=== PATIENT | female | born 1945 | race Caucasian/White ===

== ENCOUNTER → 2016-08-10 | Outpatient (CLI) | payer OTHER ==
[~2016-08-10] MED LIST: ASCA500 PO; DPH/ PO; FOLI1TAB7 PO; GABA1CAP PO; IBUP-1050 PO; LORA-741 PO; METO25TA3 PO; SERT25TA PO
--- NOTE | 2016-08-10 17:57 | DIAGNOSTIC IMAGING REPORT ---
LEFT LOWER EXTREMITY VENOUS DOPPLER HISTORY: LEFT LEG PAIN R/O DVT COMPARISON STUDY: None. FINDINGS: There is normal compressibility, flow, and augmentation within the left lower extremity deep venous system. Within the left calf at the patient's area of pain there is a superficial varicosity which appears patent. IMPRESSION: No DVT within the left lower extremity. Electronically signed by: Dewey Lovell M.D. 08/10/2016 5:56 PM Dictated Date/Time: 08/10/2016 5:56 PM
== END | disposition home or self-care (01) ==
LOC: C.ULTR 17:24
PROVIDERS: ATTEND Family Medicine
DX: M79.605 Pain in left leg (principal)

== ENCOUNTER → 2017-02-23 | Outpatient (CLI) | payer OTHER ==
[~2017-02-23] MED LIST changes: -FOLI1TAB7 PO; +FOLI1TAB8 PO
--- NOTE | 2017-02-26 08:00 | MAMMOGRAPHY REPORT ---
BILATERAL DIGITAL DIAGNOSTIC MAMMOGRAM TOMOSYNTHESIS WITH CAD AND TARGETED LEFT ULTRASOUND: 7 CLINICAL HISTORY: The patient reports left breast pain and associated lumpiness in the left upper out er quadrant. TECHNIQUE: Breast tomosynthesis in addition to standard 2D mammography was performed. Current study was also evaluated with a Computer Aided Detection (CAD) system. Bilateral CC and MLO 2-D and tomosy nthesis images were obtained. COMPARISON: Comparison is made to exams dated: 03/09/2014 mammogram, 09/01/2013 ultrasound, 09/01/2013 mammogram, 03/10/2013 ultrasound, 03/10/2013 mammogram - [facility], and 04/03/2002 mammogram. BREAST COMPOSITION: There are scattered areas of fibroglandular density in both breasts. FINDINGS: A triangle marker xiong the site of the palpable lumps and associated pain in the left uppe r outer quadrant. No suspicious masses or other suspicious mammographic abnormalities are noted in t his region. The remainder of both breasts are stable compared to prior exams, without suspicious mas ses, calcifications, or areas of architectural distortion noted. Bilateral asymmetries and scattered bilateral benign-appearing calcifications are stable compared to prior exams. Targeted ultrasound was performed of the area of the palpable lumps and pain pointed out by the patie nt, involving the left 1:00 breast. Sonographically normal tissue is seen throughout the left 1:00 b reast, without evidence of a mass or other suspicious sonographic normality. IMPRESSION: ACR BI-RADS CATEGORY 2: BENIGN, TARGETED ULTRASOUND ACR BI-RADS CATEGORY 2: BENIGN No suspicious mammographic or sonographic abnormality at the site of left breast lumps and pain point ed out by the patient. There is no mammographic or targeted sonographic evidence of malignancy. Rec ommend clinical follow-up; any decision to biopsy should be based on clinical grounds. Also recommen d routine bilateral screening mammograms in one year. The patient has been verbally notified of the results. Approximately 10% of breast cancers are not detected with mammography. A negative mammographic report should not delay biopsy if a clinically suggestive mass is present. Mignon Ramírez M.D. ah/:02/23/2017 14:28:57 Planning Supervisor: Yancy MILLER(R)(M), [facility] letter sent: Normal 1/2 BI-RADS Code: ACR BI-RADS Category 2: Benign Ultrasound BI-RADS: ACR BI-RADS Category 2: Benign
== END | disposition home or self-care (01) ==
LOC: C.MAMM 13:50
PROVIDERS: ATTEND Nurse Practitioner Family
DX: N64.4 Mastodynia (principal); N63.0 Unspecified lump in unspecified breast

== ENCOUNTER 2017-03-08 17:16 | Emergency (ER) | payer OTHER ==
[~2017-03-08] VITALS: Ht 167.6 cm; Wt 70.6 kg
[~2017-03-08 17:16] MED LIST changes: +GABA-1693 PO; -GABA1CAP PO
[2017-03-08 17:19] VITALS: TEMP 36.8; Ht 167.6 cm; Wt 70.6 kg
[2017-03-08 17:35] VITALS: O2SAT 97
--- NOTE | 2017-03-08 17:41 | EMERGENCY ROOM VISIT NOTE ---
History Report prepared by Tayla: Ana Henderson Under the Supervision of: Dr. Celestine Carrillo D.O. First contact with patient: 17:21 Chief Complaint: STROKE SYMPTOMS Stated Complaint: LEFT SIDED NUMBNESS OF FACE History of Present Illness The patient is a 72 year old female who presents to the Emergency Room with complaints of an episode of stroke like symptoms starting an hour ago. The patient states that she started having a headache unlike any she has ever had. She reports that she noticed that the left side of her face started going numb from her nose down through her lips. The patient states that she felt like she was going to pass out. The patient complains of a knot in the side of her neck and dry eyes. She reports that she has been taking Restasis with no relief. The patient notes a history of arthritis, fibromyalgia, anxiety, depression, IBS, and several neck surgeries. She notes that she takes a beta kalee for irregular heartbeats and states that she had a cardiac ablation a few years ago. Source of History: patient Onset: an hour ago Position: other (global) Quality: numbness Timing: other (episode) Associated Symptoms: + headache, + neck pain Note: The patient complains of dry eyes and feeling like she was going to pass out. Review of Systems See HPI for pertinent positives & negatives. A total of 10 systems reviewed and were otherwise negative. Past Medical & Surgical Medical Problems: (1) Anxiety (2) Arthritis (3) Depression (4) Fibromyalgia (5) History of thyroid nodule (6) IBS (irritable bowel syndrome) Surgical Problems: (1) Hx of neck surgery Family History No pertinent family history Social History Smoking Status: Never Smoker Alcohol Use: none Housing Status: lives with family Occupation Status: retired Current/Historical Medications Scheduled Ascorbic Acid (Ascorbic Acid), 500 MG PO DAILY Cyclosporine (Ophth) (Restasis), 1 DROP OPB BID Folic Acid (Folvite), 1 MG PO DAILY Gabapentin (Neurontin), 100 MG PO DAILY Ibuprofen (Advil), 200-600 MG PO Q4HR PRN Lorazepam (Ativan), 0.5 MG PO Q6HR PRN Metoprolol Succ (Toprol Xl) (Toprol-Xl), 12.5 MG PO QPM Pregabalin (Lyrica), 150 MG PO BID Sertraline (Zoloft), 150 MG PO QPM Allergies Coded Allergies: Codeine (Verified Adverse Reaction, Unknown, NAUSEA, 03/08/17) Physical Exam Vital Signs Date Time Temp Pulse Resp B/P (MAP) Pulse Ox O2 Delivery O2 Flow Rate FiO2 03/08/17 18:16 91 16 110/96 95 03/08/17 18:00 60 20 140/60 03/08/17 17:46 63 20 143/74 100 03/08/17 17:35 97 Room Air 03/08/17 17:35 69 03/08/17 17:30 70 20 158/81 03/08/17 17:19 36.8 103 16 165/84 97 Room Air Physical Exam VITAL SIGNS: were reviewed as above. GENERAL:Non-toxic in appearance. SKIN: Warm dry and pink. HEAD: Normocephalic and atraumatic. OROPHARYNX: Is clear and moist NECK: Supple without lymphadenopathy or meningismus. LUNGS: clear. HEART: Regular rate and rhythm. ABDOMEN: Soft and nontender. EXTREMITIES: Warm and well perfused. NEUROLOGICALLY: Awake alert and oriented without focal deficit. Cranial nerves 2 -12 are intact. There is no pronator drift. Cerebellar testing is within normal limits. There is no nystagmus. There is no facial droop. Speech is clear. Vision is grossly normal. MUSCULOSKELETAL: Good muscle tone. No evidence of trauma. Medical Decision & Procedures ER Provider Diagnostic Interpretation: Radiology results as stated below per my review and radiologist interpretation: CHEST ONE VIEW PORTABLE CLINICAL HISTORY: 72 years-old Female presenting with EVALUATE ALTERED MENTAL STATUS/WEAKNESS. TECHNIQUE: Portable upright AP view of the chest was obtained. COMPARISON: 04/03/2014. FINDINGS: Atherosclerosis of aortic arch. Cardiac silhouette top normal in size. Minimal left basilar opacities. No pleural effusion or pneumothorax. Partially visualized anterior cervical fusion hardware. Upper abdomen normal. IMPRESSION: 1. Minimal left basilar atelectasis. No convincing evidence of acute cardiopulmonary disease. Electronically signed by: Fabio Summers M.D. 03/08/2017 5:59 PM Dictated Date/Time: 03/08/2017 5:[address] SCAN OF THE BRAIN WITHOUT IV CONTRAST CLINICAL HISTORY: Change in mental status. Weakness. COMPARISON STUDY: No priors. TECHNIQUE: Unenhanced axial CT scan of the brain is performed from the vertex to the skull base. A dose lowering technique was utilized adhering to the principles of ALARA. CT DOSE: 537.48 mGy.cm FINDINGS: Brain parenchyma: There are age-related involutional changes noting mild subcortical and periventricular microangiopathic change. There is no hemorrhage, mass effect, or evidence of acute territorial ischemia by CT criteria. Durant-white matter is preserved. No extra-axial fluid collection is seen. Ventricles, sulci, cisterns: Prominent secondary to involutional change. Intracranial vasculature: There is mild atherosclerotic calcification of the cavernous carotid intervertebral arteries. Calvarium: Unremarkable. Sinuses and mastoids: The visualized paranasal sinuses are clear. The mastoid air cells are well pneumatized. Orbits: The bony orbits are grossly intact. IMPRESSION: There is no hemorrhage, mass effect, or evidence of acute territorial ischemia by CT criteria. Electronically signed by: Rafiq Sousa M.D. 03/08/2017 5:47 PM Dictated Date/Time: 03/08/2017 5:44 PM BRAIN WITHOUT CONTRAST CLINICAL HISTORY: 72 years-old Female presenting with paresthesia left face numbness started at 3:00 PM today, r/o cva. TECHNIQUE: Multisequence, multiplanar MR imaging of the brain was performed without the use of intravenous contrast. IV contrast: None. COMPARISON: Noncontrast CT head from earlier the same day. FINDINGS: Ventricles and sulci normal in size. Minimal subcortical white matter FLAIR hyperintensity likely age-related change. Brain parenchyma otherwise normal in appearance with preserved durant-white differentiation. No mass effect or midline shift. No restricted diffusion to suggest acute ischemia. No hemorrhage. No extra-axial fluid collection. T2 skull base flow voids preserved. Bone marrow signal intensity within the calvarium within normal limits. IMPRESSION: 1. No acute intracranial abnormality. Electronically signed by: Fabio Summers M.D. 03/08/2017 7:00 PM Dictated Date/Time: 03/08/2017 6:57 PM Laboratory Results 03/08/17 17:30 Red Blood Count 4.47, Mean Corpuscular Volume 94.4, Mean Corpuscular Hemoglobin 30.9, Mean Corpuscular Hemoglobin Concent 32.7, Mean Platelet Volume 10.6, Neutrophils (%) (Auto) 52.6, Lymphocytes (%) (Auto) 38.1, Monocytes (%) (Auto) 7.0, Eosinophils (%) (Auto) 1.9, Basophils (%) (Auto) 0.3, Neutrophils # (Auto) 4.15, Lymphocytes # (Auto) 3.01, Monocytes # (Auto) 0.55, Eosinophils # (Auto) 0.15, Basophils # (Auto) 0.02 03/08/17 17:30 Test 03/08/17 17:30 White Blood Count 7.89 K/uL (4.8-10.8) Red Blood Count 4.47 M/uL (4.2-5.4) Hemoglobin 13.8 g/dL (12.0-16.0) Hematocrit 42.2 % (37-47) Mean Corpuscular Volume 94.4 fL (80-100) Mean Corpuscular Hemoglobin 30.9 pg (25-34) Mean Corpuscular Hemoglobin Concent 32.7 g/dl (32-36) Platelet Count 332 K/uL (130-400) Mean Platelet Volume 10.6 fL (7.4-10.4) Neutrophils (%) (Auto) 52.6 % Lymphocytes (%) (Auto) 38.1 % Monocytes (%) (Auto) 7.0 % Eosinophils (%) (Auto) 1.9 % Basophils (%) (Auto) 0.3 % Neutrophils # (Auto) 4.15 K/uL (1.4-6.5) Lymphocytes # (Auto) 3.01 K/uL (1.2-3.4) Monocytes # (Auto) 0.55 K/uL (0.11-0.59) Eosinophils # (Auto) 0.15 K/uL (0-0.5) Basophils # (Auto) 0.02 K/uL (0-0.2) RDW Standard Deviation 45.7 fL (36.4-46.3) RDW Coefficient of Variation 13.3 % (11.5-14.5) Immature Granulocyte % (Auto) 0.1 % Immature Granulocyte # (Auto) 0.01 K/uL (0.00-0.02) Anion Gap 3.0 mmol/L (3-11) Est Creatinine Clear Calc Drug Dose 53.1 ml/min Estimated GFR () 76.1 Estimated GFR (Non- 65.6 BUN/Creatinine Ratio 23.4 (10-20) Calcium Level 8.9 mg/dl (8.5-10.1) Magnesium Level 2.5 mg/dl (1.8-2.4) Total Bilirubin 0.3 mg/dl (0.2-1) Direct Bilirubin mg/dl (0-0.2) Aspartate Amino Transf (AST/SGOT) 21 U/L (15-37) Alanine Aminotransferase (ALT/SGPT) 24 U/L (12-78) Alkaline Phosphatase 101 U/L (45-117) Total Creatine Kinase 138 U/L (26-192) Creatine Kinase MB 2.5 ng/ml (0.5-3.6) Creatine Kinase MB Ratio 1.8 (0-3.0) Troponin I < 0.015 ng/ml (0-0.045) Total Protein 8.0 gm/dl (6.4-8.2) Albumin 4.4 gm/dl (3.4-5.0) Thyroid Stimulating Hormone (TSH) 2.370 uIu/ml (0.300-4.500) Chemistry Specimen Hemolysis Laboratory results as stated above per my review. ECG Indication: other (numbness) Rate (beats per minute): 71 Rhythm: sinus with SA Findings: no acute ischemic change, no ectopy ED Course 172: Previous medical records were reviewed. The patient was evaluated in room B1. A complete history and physical examination was performed. 1840: I went to reevaluate the patient, but she was at MRI. 1904: On reevaluation, the patient is resting comfortably. She notes that she has a headache. I discussed the results and findings with the patient. She verbalized agreement of the treatment plan. The patient was discharged home. 1907: Ordered Toradol Inj 30 mg IV. Medical Decision Differential includes acute coronary syndrome, myocardial infarction, CVA, TIA, anemia, infection, pneumonia, UTI, pyelonephritis, poor nutrition, dehydration, electrolyte disturbance,hypoglycemia. This is a 72-year-old female who presents to the ED with a chief complaint of a strange headache and left-sided facial numbness. The patient states that numbness is near the upper lip and lateral nasolabial fold. It does not encompass the entire left face. The patient states that it occurred one hour before arrival. She denies any other symptoms. No recent illness, fevers or trauma. Her neurologic and physical exam were normal. She is no focal deficits. CT scan of the brain and MRI of the brain were normal. CBC, complete metabolic panel and troponin as well as TSH were unremarkable. EKG shows a normal sinus rhythm with sinus arrhythmia. The patient was treated with Toradol IV for headache. She was told results the test. She is felt to be stable for discharge and outpatient follow-up. She does report a history of arthritis, fibromyalgia, irritable bowel syndrome, previous neck surgery, anxiety and depression as well as previous cardiac ablation. Medication Reconcilliation Current Medication List: was personally reviewed by me Blood Pressure Screening Patient's blood pressure: Elevated blood pressure Blood pressure disposition: Elevated BP felt to be situational Impression Primary Impression: Headache Additional Impression: Facial paresthesia Scribe Attestation The scribe's documentation has been prepared under my direction and personally reviewed by me in its entirety. I confirm that the note above accurately reflects all work, treatment, procedures, and medical decision making performed by me. Departure Information Dispostion Home / Self-Care Referrals Liza Mcdermott M.D. (PCP) Forms HOME CARE DOCUMENTATION FORM, IMPORTANT VISIT INFORMATION Patient Instructions Headache Pain, My [facility] Additional Instructions Follow-up with your doctor for further care and evaluation in 1-2 days. Return to the emergency department for worsening or new symptoms or any concerns. You have been examined and treated today on an emergency basis only. This is not a substitute for, or an effort to provide, complete comprehensive medical care. It is impossible to recognize and treat all injuries or illnesses in a single emergency department visit. It is therefore important that you follow up closely with your doctor. Call as soon as possible for an appointment. Problem Qualifiers
[2017-03-08 17:43] LABS: BASO % 0.3 %; BASO ABS # 0.02 K/uL (0-0.2); EOS % 1.9 %; EOS ABS # 0.15 K/uL (0-0.5); HEMATOCRIT 42.2 % (37-47); HEMOGLOBIN 13.8 g/dL (12.0-16.0); IG# 0.01 K/uL (0.00-0.02); LYMPH % 38.1 %; LYMPH ABS # 3.01 K/uL (1.2-3.4); MEAN CELL VOLUME 94.4 fL (80-100); MEAN CORPUSCULAR HEMOGLOBIN 30.9 pg (25-34); MEAN CORPUSCULAR HGB CONC 32.7 g/dl (32-36); MEAN PLATELET VOLUME 10.6 fL (7.4-10.4); MONO ABS # 0.55 K/uL (0.11-0.59); NEUT % 52.6 %; NEUT ABS # 4.15 K/uL (1.4-6.5); PLATELET COUNT 332 K/uL (130-400); RED CELL DISTRIBUTION WIDTH CV 13.3 % (11.5-14.5); RED CELL DISTRIBUTION WIDTH SD 45.7 fL (36.4-46.3); WHITE BLOOD COUNT 7.89 K/uL (4.8-10.8)
[2017-03-08] MEDS ORDERED: SERT-234 PO (17:46)
[2017-03-08] MEDS ORDERED: PREG1CAP70 PO (17:46)
[2017-03-08] MEDS ORDERED: CYCL0.052 OPB (17:47)
[2017-03-08] MEDS ORDERED: ASCO500T16 PO (17:47)
--- NOTE | 2017-03-08 17:49 | DIAGNOSTIC IMAGING REPORT ---
CT SCAN OF THE BRAIN WITHOUT IV CONTRAST CLINICAL HISTORY: Change in mental status. Weakness. COMPARISON STUDY: No priors. TECHNIQUE: Unenhanced axial CT scan of the brain is performed from the vertex to the skull base. A dose lowering technique was utilized adhering to the principles of ALARA. CT DOSE: 537.48 mGy.cm FINDINGS: Brain parenchyma: There are age-related involutional changes noting mild subcortical and periventricular microangiopathic change. There is no hemorrhage, mass effect, or evidence of acute territorial ischemia by CT criteria. Durant-white matter is preserved. No extra-axial fluid collection is seen. Ventricles, sulci, cisterns: Prominent secondary to involutional change. Intracranial vasculature: There is mild atherosclerotic calcification of the cavernous carotid intervertebral arteries. Calvarium: Unremarkable. Sinuses and mastoids: The visualized paranasal sinuses are clear. The mastoid air cells are well pneumatized. Orbits: The bony orbits are grossly intact. IMPRESSION: There is no hemorrhage, mass effect, or evidence of acute territorial ischemia by CT criteria. Electronically signed by: Rafiq Sousa M.D. 03/08/2017 5:47 PM Dictated Date/Time: 03/08/2017 5:44 PM
--- NOTE | 2017-03-08 18:01 | DIAGNOSTIC IMAGING REPORT ---
CHEST ONE VIEW PORTABLE CLINICAL HISTORY: 72 years-old Female presenting with EVALUATE ALTERED MENTAL STATUS/WEAKNESS. TECHNIQUE: Portable upright AP view of the chest was obtained. COMPARISON: 04/03/2014. FINDINGS: Atherosclerosis of aortic arch. Cardiac silhouette top normal in size. Minimal left basilar opacities. No pleural effusion or pneumothorax. Partially visualized anterior cervical fusion hardware. Upper abdomen normal. IMPRESSION: 1. Minimal left basilar atelectasis. No convincing evidence of acute cardiopulmonary disease. Electronically signed by: Fabio Summers M.D. 03/08/2017 5:59 PM Dictated Date/Time: 03/08/2017 5:58 PM
[2017-03-08 18:26] LABS: ALBUMIN 4.4 gm/dl (3.4-5.0); ALKALINE PHOSPHATASE 101 U/L (45-117); ALT/SGPT 24 U/L (12-78); AST/SGOT 21 U/L (15-37); BLOOD UREA NITROGEN 20 mg/dl (7-18); CALCIUM 8.9 mg/dl (8.5-10.1); CARBON DIOXIDE 30 mmol/L (21-32); CKMB 2.5 ng/ml (0.5-3.6); CREATININE 0.87 mg/dl (0.60-1.20); GLUCOSE 80 mg/dl (70-99); POTASSIUM 4.3 mmol/L (3.5-5.1); SODIUM 138 mmol/L (136-145)
--- NOTE | 2017-03-08 19:02 | DIAGNOSTIC IMAGING REPORT ---
BRAIN WITHOUT CONTRAST CLINICAL HISTORY: 72 years-old Female presenting with paresthesia left face numbness started at 3:00 PM today, r/o cva. TECHNIQUE: Multisequence, multiplanar MR imaging of the brain was performed without the use of intravenous contrast. IV contrast: None. COMPARISON: Noncontrast CT head from earlier the same day. FINDINGS: Ventricles and sulci normal in size. Minimal subcortical white matter FLAIR hyperintensity likely age-related change. Brain parenchyma otherwise normal in appearance with preserved barnhart-white differentiation. No mass effect or midline shift. No restricted diffusion to suggest acute ischemia. No hemorrhage. No extra-axial fluid collection. T2 skull base flow voids preserved. Bone marrow signal intensity within the calvarium within normal limits. IMPRESSION: 1. No acute intracranial abnormality. Electronically signed by: Fabio Summers M.D. 03/08/2017 7:00 PM Dictated Date/Time: 03/08/2017 6:57 PM
[2017-03-08] MEDS ORDERED: KETOROLAC TROMETHAMINE 30 MG/ML VIAL IV STA (19:08)
[2017-03-08 19:33] VITALS: BP 128/84; PULSE 60; O2SAT 97
[2017-08-23] MEDS ORDERED: METH500T PO (14:02)
== END 2017-03-08 19:33 | disposition home or self-care (01) ==
LOC: C.EDB 17:17
DX: R51 Headache (principal); R20.2 Paresthesia of skin; F41.9 Anxiety disorder, unspecified; F32.9 Major depressive disorder, single episode, unspecified; M19.90 Unspecified osteoarthritis, unspecified site; M79.7 Fibromyalgia; K58.9 Irritable bowel syndrome, unspecified

== ENCOUNTER → 2017-04-30 | Outpatient (CLI) | payer OTHER ==
[~2017-04-30] MED LIST changes: -ASCA500 PO; +ASCO500T16 PO; +CYCL0.052 OPB; -DPH/ PO; -GABA-1693 PO; +GABA100C13 PO; +PREG1CAP70 PO; +SERT-234 PO; -SERT25TA PO
--- NOTE | 2017-04-30 15:35 | DIAGNOSTIC IMAGING REPORT ---
MRI OF THE CERVICAL SPINE WITHOUT IV CONTRAST CLINICAL HISTORY: Neck pain. COMPARISON STUDY: Radiographs of the cervical spine dated 12/05/2011. MRI of the cervical spine dated 03/18/2012. TECHNIQUE: MRI of the cervical spine is performed utilizing various T1 and T2-weighted sequences in the axial and sagittal planes. IV contrast was not administered for this examination. The examination is degraded by susceptibility artifact from extensive spinal orthopedic hardware. FINDINGS: Cervical spine: Vertebral body height is maintained throughout the cervical spine. There is straightening of the cervical lordosis. Minimal retrolisthesis is seen at C3-C4. Alignment is otherwise preserved. There are postoperative changes from anterior fusion seen from C4 through C7. The spinous processes appear intact. The atlantodental articulation appears maintained. Intervertebral discs: Findings suggest discectomy from C4-C5 through C6-C7. Disc desiccation and loss of height are seen at C2-C3 and C3-C4. Spinal cord: The cervical spinal cord is normal in morphology and signal intensity. C2-C3: Facet arthropathy is of no confluence. The central canal and neural foramina appear patent. C3-C4: A posterior disc osteophyte complex abuts the ventral cord. Uncovertebral and facet arthropathy cause moderate right and minimal left neural foraminal stenosis. C4-C5: The central canal and neural foramina appear patent. C5-C6: The central canal is patent. Uncovertebral arthropathy causes mild left neural foraminal stenosis. C6-C7: The central canal is patent. Uncovertebral and facet arthropathy cause mild to moderate right and minimal left neural foraminal stenosis. C7-T1: Unremarkable. Soft tissues: The prevertebral and paraspinous soft tissues are normal as imaged. Brain parenchyma: The visualized brain parenchyma at the skull base is normal in appearance. IMPRESSION: 1. There is minimal retrolisthesis and central canal stenosis seen at C3-C4. This is similar in appearance to the 2013 examination. 2. Postoperative and mild spondylotic change, as detailed above. See discussion for level by level analysis. Dictated: 04/30/2017 2:32 PM Transcribed: 04/30/2017 3:37 PM TERRIE_Norm Electronically signed by: Rafiq Sousa M.D. 04/30/2017 3:37 PM Dictated Date/Time: 04/30/2017 2:32 PM
== END | disposition home or self-care (01) ==
LOC: C.MRI 13:33
PROVIDERS: ATTEND Family Medicine
DX: M54.2 Cervicalgia (principal)